=== PATIENT | male | born 1940 | race Caucasian/White ===

== ENCOUNTER → 2016-06-19 | Outpatient (CLI) | payer MEDICARE, BC ==
[~2016-06-19] MED LIST: 3N1 COMMODE MC; ATOR10TA65; CARV3.1260 PO; COU1 PO; DESV50TA14 PO; HYDR12.58 PO; OXYC-481 PO; TEMA30CA PO; TRAM50TA2 PO; TRAZ150T65; WALK1EAC23 MC; [UNRECOGNIZED DRUG - CODE] PO
--- NOTE | 2016-06-19 12:26 | RADRPT ---
PROCEDURE: XR pelvis/right hip. CLINICAL INDICATION: Hip pain TECHNIQUE: AP pelvis/AP and lateral right hip views available for review. 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 There is heterotrophic bone formation lateral to the rig ht hip. There is otherwise normal mineralization, architecture and alignment. There is no evidence of loose lloyd of the prosthesis. No fractures, dislocation or osseous lesions are identified. The joints ar e unremarkable. There are normal soft tissues. There are surgical clips in the pelvis IMPRESSION: Bilateral total hip replacements. Otherwise unremarkable examination. Unchanged from the previous examination RPTAT: [facility] .Obie Flores MD, MD Date Time Electronically viewed and signed by .Obie Flores MD, on 06/19/2016 12:25 .B/
== END | disposition home or self-care (01) ==
LOC: HKI 10:58
PROVIDERS: ATTEND Orthopaedic Surgery
DX: Z47.1 Aftercare following joint replacement surgery (principal); Z96.643 Presence of artificial hip joint, bilateral
CPT/HCPCS: 73502; G0463